=== PATIENT | female | born 1985 | race African-American/Black ===

== ENCOUNTER 2018-07-22 15:21 | Day surgery (SDC) | payer OTHER ==
[2018-07-20 15:50] VITALS: BMI 26.4
[2018-07-22] MEDS ORDERED: PROPOFOL 20 ML ONE (17:51)
[2018-07-22] MEDS ORDERED: MIDAZOLAM HCL 2 MG/2 ML SINGLE DOSE VIAL ONE (17:51)
[2018-07-22] MEDS ORDERED: Pregnancy Control Solution IV ONE (17:55)
[2018-07-22] MEDS ORDERED: BUPIVACAINE HCL/PF 0.25% (2.5MG/ML) 10 ML VIAL IJ ONE (18:37)
[2018-07-22] MEDS ORDERED: oxyCODONE HCL 5 MG TABLET PO PRN ×2 (19:06)
[2018-07-22] MEDS ORDERED: ONDANSETRON 4 MG/2 ML VIAL IVPUSH PRN (19:06)
[2018-07-22] MEDS ORDERED: PROMETHAZINE HCL 25 MG/1 ML VIAL IVPUSH PRN (19:06)
[2018-07-22] MEDS ORDERED: ACETAMINOPHEN 325 MG TABLET (FP) PO PRN (19:06)
[2018-07-22] MEDS ORDERED: KETOROLAC TROMETHAMINE 30 MG/1 ML VIAL IVPUSH ONE (19:07)
[2018-07-22 19:32] VITALS: TEMP 97.6
[2018-07-22 19:45] VITALS: PULSE 77
[2018-07-22 20:18] VITALS: BP 132/82
--- NOTE | 2018-07-23 17:58 | OP ---
DATE OF OPERATION: 07/22/2018 PREOPERATIVE DIAGNOSIS: Left ring finger middle phalanx rotated fracture. POSTOPERATIVE DIAGNOSIS: Left ring finger middle phalanx rotated fracture. OPERATIVE PROCEDURE: Closed reduction, percutaneous pinning, left ring finger middle phalanx fracture. SURGEON: Jennifer Godoy MD FARM MACHINERY ENGINE MECHANIC: CHANTAL Johns ANESTHESIA: General. COMPLICATIONS: None. ESTIMATED BLOOD LOSS: Minimal. INDICATION FOR PROCEDURE: The patient is a 33-year-old female with a rotated fracture as stated above, indicated for operative treatment. The risks, benefits and alternatives were discussed with the patient at length and proper informed consent was obtained. DESCRIPTION OF PROCEDURE: After proper identification of the patient and the correct operative site, the patient was brought to the operating room and placed supine on the operating table with all prominences well padded. General anesthesia was given. A time-out procedure was performed. Intravenous antibiotics were given. The left upper extremity was prepped and draped in the usual sterile fashion. Under live fluoroscopy, the fracture was reduced and obtained clinical acceptable alignment. Rotation was corrected. Two K-wires were placed percutaneously - one from the tip of the finger across the DIP joint and then into the middle phalanx, securing the shaft. A second K-wire was placed obliquely across the fracture site. This provided secure, stable fixation with good alignment clinically and radiographically confirmed. Pins were bent and cut short outside the skin. Sterile dressings and a splint were placed. The patient was reversed from anesthesia and brought to the recovery room in stable condition. She tolerated the procedure well. Aaron Ferreira, the hair or beauty salon assistant, was integral throughout the procedure. This procedure could not have been performed without a skilled operative hair or beauty salon assistant. JENNIFER GODOY M.D. [id number]
== END 2018-07-22 20:15 | disposition home or self-care (01) ==
LOC: FASU 15:21
PROVIDERS: ATTEND Orthopaedic Surgery Hand Surgery
PROC: 0PSV34Z Reposition Left Finger Phalanx with Internal Fixation Device, Percutaneous Approach (ICD-10-PCS; principal; 2018-07-22 18:18)
DX: S62.625A Displaced fracture of middle phalanx of left ring finger, initial encounter for closed fracture (principal); X58.XXXA Exposure to other specified factors, initial encounter; Y93.9 Activity, unspecified; Y92.9 Unspecified place or not applicable
CPT/HCPCS: 73140-TC-LT-FY; 84703